=== PATIENT | male | born 2000 | race Caucasian/White ===

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

== ENCOUNTER 2021-02-05 11:37 | Emergency (ER) | payer OTHER, SELFPAY ==
--- NOTE | ~2021-02-05 | XR_ITS ---
EXAMINATION: XR chest 1V INDICATION: Sore throat and cough TECHNIQUE: PA view of the chest is obtained. COMPARISON: 03/05/2020 FINDINGS: The lungs are free of acute opacities. There is no pleural effusion or pneumothorax. The ca rdiomediastinal silhouette is normal. IMPRESSION: 1. No acute cardiopulmonary abnormality. Reviewed, dictated and finalized at location A.
[2021-02-05 11:38] VITALS: BP 123/60; PULSE 82; RESP 18; TEMP 36.1; O2SAT 99
--- NOTE | 2021-02-05 13:08 | ED.GENADULT ---
HPI - General Adult General Chief complaint: Unspecified Stated complaint: sore throat, weak, ROBERT Time Seen by Provider: 02/05/21 12:55 Source: patient History of Present Illness HPI narrative: Patient presented to the ED with Covid symptoms in the form of intermittent headache, low-grade fever, coughing, sore throat, body aches for the last 5 days. Got worse today. Patient is not vaccinated, not sure if he been exposed to anybody with Covid or not. Related Data Home Medications Medication Instructions Recorded Confirmed cetirizine mg 02/05/21 Allergies Allergy/AdvReac Type Severity Reaction Status Date / Time No Known Allergies Allergy Verified 02/05/21 11:38 Review of Systems Review of Systems: CONSTITUTIONAL: Denies fever, chills, or sweats. EYES: Denies visual changes, redness, or discharge. ENT: Denies rhinorrhea, congestion, sore throat, or otalgia. CARDIOVASCULAR: Denies chest pain, palpitations, or edema. RESPIRATORY: Denies cough or dyspnea. GASTROINTESTINAL: Denies abdominal pain, nausea, vomiting, or diarrhea. GENITOURINARY: Denies dysuria or hematuria. SKIN: Denies rash or itching. MUSCULOSKELETAL: Denies back pain, joint pain, or myalgia. NEUROLOGIC: Denies headache, numbness, or weakness. PSYCHIATRIC: Denies anxiety or depression. PMFSH Past Medical History Medical History No active medical problems Social History Social History Smoking status: Never smoker Gender identity (if verbalized by the patient): Male Exam Narrative: General appearance: Well-developed, well-nourished Skin: Normal color Head: Normocephalic, nontraumatic Eyes: Clear conjunctiva ENT: Oropharynx normal, ears normal, nose normal Neck: Supple, nontender Chest and respiratory: Airway patent, no respiratory distress, no accessory muscle use Heart: Regular rate/rhythm Abdomen: Soft, nontender, no organomegaly, quiet bowel sounds Vascular: Normal peripheral pulses, normal capillary refill. Musculoskeletal: Normal range of motion, nontender back Neurologic: Alert and oriented ?3, [employer]ATOR is normal as tested, no gross motor deficit Course Course Emergency Course: Stable Vital Signs Vital signs: Vital Signs Temperature 36.1 C L 02/05/21 11:38 Pulse Rate 82 02/05/21 11:38 Respiratory Rate 18 02/05/21 11:38 Blood Pressure 123/60 02/05/21 11:38 Pulse Oximetry 99 02/05/21 11:38 Temperature 36.1 C L 02/05/21 11:38 Pulse Rate 82 02/05/21 11:38 Respiratory Rate 18 02/05/21 11:38 Blood Pressure 123/60 02/05/21 11:38 Pulse Oximetry 99 02/05/21 11:38 Medical Decision Making MDM Narrative Medical decision making narrative: Upper respiratory viral infection is my concern. Covid test ordered. Differential Diagnosis Differential Diagnosis: Have a respiratory viral infection, Covid infection Vital Signs Vital Signs: Vital Signs Temperature 36.1 C L 02/05/21 11:38 Pulse Rate 82 02/05/21 11:38 Respiratory Rate 18 02/05/21 11:38 Blood Pressure 123/60 02/05/21 11:38 Pulse Oximetry 99 02/05/21 11:38 Temperature 36.1 C L 02/05/21 11:38 Pulse Rate 82 02/05/21 11:38 Respiratory Rate 18 02/05/21 11:38 Blood Pressure 123/60 02/05/21 11:38 Pulse Oximetry 99 02/05/21 11:38 Lab Data Labs: Strep Screen Presumptive Negative *(Reference Range: Negative)* Critical Care Time Critical Care Time Critical Care Time: No Discharge Plan Discharge Clinical Impression: Viral upper respiratory infection Patient Disposition:
[2021-02-05 13:22] VITALS: BP 120/88; PULSE 80; RESP 20; O2SAT 100
[2021-02-06 18:30] LABS: SARS-CoV-2 RNA PCR Negative
== END 2021-02-05 13:31 | disposition home or self-care (01) ==
PROVIDERS: Emergency Provider Emergency Medicine
DX: J02.9 Acute pharyngitis, unspecified (principal); R51.9 Headache, unspecified; R05 Cough; Z20.822 Contact with and (suspected) exposure to COVID-19
CPT/HCPCS: 71045; 87081; 87880; 99283; C9803; U0003; U0005

== ENCOUNTER 2021-10-23 14:32 | Outpatient (CLI) | payer OTHER, SELFPAY ==
--- NOTE | ~2021-10-23 | XR_ITS ---
EXAM: XR finger 3rd LT min 2V HISTORY: TOOTHACHE,PAIN IN LEFT/PAIN IN LEFT LONG FINGER COMPARISON: None available FINDINGS: Normal mineralization. No fracture or dislocation. No lytic or blastic lesion. Joint space s maintained. No erosion or periosteal change. 9 mm ovoid soft tissue density anterior and lateral to the third distal phalange. IMPRESSION: Possible soft tissue mass in the distal left third digit, consider MRI of the finger for further eval uation. Reviewed, dictated and finalized at location K. IMPRESSION: Possible soft tissue mass in the distal left third digit, consider MRI of the f genevieve for further evaluation.
--- NOTE | ~2021-10-23 | XR_ITS ---
EXAM: XR mandible min 4V HISTORY: TOOTHACHE,PAIN IN LEFT/PAIN IN LEFT LONG FINGER COMPARISON: None available FINDINGS: Normal mineralization. Aerated spaces are clear. Symmetric intact orbits. No melissa-apical l ucency, although not all tooth roots are adequately visualized. Bilateral impaction of the mandibular wisdom teeth. IMPRESSION: Impacted mandibular wisdom teeth. Recommend dental referral. Reviewed, dictated and finalized at location K.
== END 2021-10-23 14:33 | disposition home or self-care (01) ==
LOC: ANHIMG 14:38
PROVIDERS: PCP Physician Assistant; Visit Provider Physician Assistant
DX: K08.89 Other specified disorders of teeth and supporting structures (principal); M79.645 Pain in left finger(s)
CPT/HCPCS: 70110; 73140

== ENCOUNTER 2021-11-04 23:14 | Emergency (ER) | payer OTHER, SELFPAY ==
[2021-11-04 23:41] VITALS: BP 135/82; PULSE 106; RESP 20; O2SAT 99
--- NOTE | 2021-11-05 01:30 | ED.URI ---
HPI - URI/Sore Throat General Chief Complaint: Upper Respiratory Infection Stated Complaint: cough, sinus infection Time Seen by Provider: 11/04/21 23:49 History of Present Illness HPI Narrative: 21-year-old male with history of seasonal allergies presents here with anticoagulation for worsening congestion and cough, no fevers or chills. No nausea or vomiting other than when he vomits from coughing. Related Data Home Medications Medication Instructions Recorded Confirmed cetirizine mg 02/05/21 Allergies Allergy/AdvReac Type Severity Reaction Status Date / Time No Known Allergies Allergy Verified 02/05/21 11:38 Review of Systems Review of Systems: All systems reviewed & are unremarkable except as noted in HPI and below PMFSH Past Medical History Medical History No active medical problems Social History Social History Smoking status: Never smoker Gender identity (if verbalized by the patient): Male Exam Narrative: EXAMINATION OF ORGAN SYSTEMS/BODY AREAS: Constitutional: Vital signs per nursing GENERAL:[No acute distress, non-toxic appearing.] HEAD: Normal with no signs of head trauma. EYES: EOMI, conjunctiva normal ENT: Hearing grossly intact; no sinus tenderness, congested LUNGS: Nonlabored breathing though with some coughs with deep breathing. CTAB HEART: Minimally tachycardic ABD: [Soft], [tender to palpation] EXT: Normal range of motion SKIN: [No rashes or lesions.] NEURO: [Alert and oriented x 3. No gross focal sensory or strength deficits.] PSYCH: Normal affect Course Course Emergency Course: 21-year-old male with serious seasonal allergies presents here with cough and congestion, vital signs within acceptable limits, lungs are clear to auscultation bilaterally, I suspect possible URI including COVID, less likely bacterial pneumonia given his normal saturations and no productive cough, or worsening of his environmental allergy. Doubt PE given degree of coughing congestion. I will swab him for COVID, return precautions provided. Stable for discharge home. Vital Signs Vital signs: Vital Signs Pulse Rate 106 H 11/04/21 23:41 Respiratory Rate 20 11/04/21 23:41 Blood Pressure 135/82 11/04/21 23:41 Pulse Oximetry 99 11/04/21 23:41 Pulse Rate 106 H 11/04/21 23:41 Respiratory Rate 20 11/04/21 23:41 Blood Pressure 135/82 11/04/21 23:41 Pulse Oximetry 99 11/04/21 23:41 MDM - URI/Sore Throat Lab Data Labs: Lab Results 11/05/21 Range/Units 01:21 SARS-CoV-2 RNA (RT-PCR) Negative Discharge Plan Discharge Clinical Impression: Suspected 2019 novel coronavirus infection Upper respiratory infection Qualifiers: URI type: unspecified viral URI Qualified Code(s): J06.9 - Acute upper respiratory infection, unspecified Patient Disposition: Home, Self-Care Condition: Stable Instructions: Antibiotic Form, Cold Symptoms (ED) Prescriptions: No Action cetirizine 10 mg tablet RF: 0 ipratropium bromide 42 mcg (0.06 %) spray,non-aerosol 2 spray intranasal QID Qty: 15 RF: 0 Follow-up/Referrals: Ba,DA Borja [Primary Care Provider] -
[2021-11-05 02:03] LABS: SARS-CoV-2 RNA PCR Negative
== END 2021-11-05 01:43 | disposition home or self-care (01) ==
LOC: ANHED 11-05 01:46
PROVIDERS: Emergency Provider Emergency Medicine; PCP Physician Assistant
DX: J06.9 Acute upper respiratory infection, unspecified (principal); Z20.822 Contact with and (suspected) exposure to COVID-19
CPT/HCPCS: 99283; C9803; U0003; U0005

== ENCOUNTER 2021-11-24 15:57 | Emergency (ER) | payer OTHER, SELFPAY ==
[2021-11-24 16:05] VITALS: BP 133/72; PULSE 86; RESP 20; TEMP 37.4; O2SAT 100
--- NOTE | 2021-11-24 16:09 | ED.URI ---
HPI - URI/Sore Throat General Chief Complaint: Upper Respiratory Infection Stated Complaint: Allergies Time Seen by Provider: 11/24/21 16:09 Source: patient and RN notes reviewed Mode of arrival: ambulatory Limitations: no limitations History of Present Illness HPI Narrative: 21-year-old male presents to the [facility] with complaints of allergies. Was prescribed allergy medication by his primary but still having symptoms. Had not followed up again with his primary. Denies fevers, chest pain. States he has been coughing and trying to use his inhaler with no relief. Related Data Home Medications Medication Instructions Recorded Confirmed cetirizine 10 mg tablet 10 mg PO DAILY 02/05/21 11/24/21 albuterol sulfate 90 mcg/actuation 2 inh inhalation DIRECTED 11/24/21 11/24/21 aerosol inhaler Allergies Allergy/AdvReac Type Severity Reaction Status Date / Time No Known Allergies Allergy Verified 11/24/21 16:19 Review of Systems Review of Systems: All systems reviewed & are unremarkable except as noted in HPI and below Constitutional: Constitutional: Reports no additional constitutional complaints, Denies chills and Denies fever(s) Eyes: Eyes: Reports no additional eye complaints ENT: Reports as per HPI and Reports nasal congestion Cardiovascular: Cardiovascular: Reports no additional cardiovascular complaints Respiratory: Respiratory: Reports as per HPI, Reports chest congestion, Reports cough, Denies dyspnea and Denies wheezing Gastrointestinal: Gastrointestinal: Reports no additional gastrointestinal complaints Musculoskeletal: Musculoskeletal: Reports no additional musculoskeletal complaints Integumentary/Breasts: Skin/Breast: Reports system reviewed and no additional complaints, except as docu Neurologic: Reports system reviewed and no additional complaints, except as documented Psychiatric: Psychiatric: Reports no additional psychiatric complaints Allergic/Immunologic: Allergic/Immunologic: Reports no additional allergic/immunologic complaints [facility] Past Medical History Medical History No active medical problems Surgical History Surgical History (Updated 11/24/21 @ 19:46 by Seda Cee APRN) No history of previous surgery Social History Social History Smoking status: Never smoker Gender identity (if verbalized by the patient): Male Comments At the time of my signature, I reviewed and agree with the nursing past medical, surgical, social, and family history. There is no relevant family history pertinent to the patient complaint. Exam Const: General: no acute distress, alert and ill appearing acutely (mild) Nutritional Appearance: well nourished and obese Orientation/consciousness: patient oriented x3 Limitations: no limitations HENMT: Head: normal to inspection Ears: external ears normal General nose exam: Normal external nose present Mouth: Yes Normal oral and palatal mucosa present Eyes: General: appearance normal, both eyes and all related structures Pupils: Equal, round and reactive pupils present Neck: Neck: normal visual inspection, no lymphadenopathy and no meningeal signs Chest: Chest palpation & inspection: normal inspection of the chest Resp: Effort & Inspection: normal respiratory effort and no use of accessory muscles Auscultation: clear to auscultation bilaterally, no crackles, no rales, no rhonchi and no wheezes Cardio: Rate: regular rate Rhythm: regular rhythm Back/Spine/Pelvis: Cervical Spine: normal cervical lordosis Thoracic/Lumbar Spine: thoracic and lumbar spine normal to inspection Skin: General skin exam: normal color Rashes: no rashes Wounds: no wounds Neuro: General: patient oriented x3, moves all extremities, no meningeal signs and no focal motor deficits Cranial nerves: Yes Equal, round and reactive pupils present Speech: norm
== END 2021-11-24 16:25 | disposition home or self-care (01) ==
PROVIDERS: Emergency Provider Nurse Practitioner
DX: J40 Bronchitis, not specified as acute or chronic (principal)
CPT/HCPCS: 99213; G0463

== ENCOUNTER 2024-01-29 06:33 | Emergency (ER) | payer OTHER, SELFPAY ==
[2024-01-29 06:39] VITALS: BP 149/86; PULSE 109; RESP 18; TEMP 37.3; O2SAT 98
[2024-01-29 07:00] VITALS: BP 141/96; PULSE 111; RESP 18; O2SAT 98
[2024-01-29 07:30] VITALS: BP 147/91; PULSE 105; RESP 18; TEMP 37.2; O2SAT 98
--- NOTE | 2024-01-29 07:35 | ED.DENTAL ---
HPI - Dental/Oral General Chief complaint: Dental/Oral Stated complaint: dental pain Time Seen by Provider: 01/29/24 06:55 History of Present Illness HPI Narrative: 23-year-old male presents to the emergency department for evaluation for dental pain. Patient did see a dentist yesterday and was started on Augmentin. Patient took his 1st dose at 6:00 p.m. yesterday. Patient did notice worsening swelling today. Related Data Home Medications Medication Instructions Recorded Confirmed cetirizine 10 mg tablet 10 mg PO DAILY 02/05/21 11/24/21 albuterol sulfate 90 mcg/actuation 2 inh inhalation DIRECTED 11/24/21 11/24/21 aerosol inhaler amoxicillin 500 mg capsule mg 01/29/24 ibuprofen 800 mg tablet mg 01/29/24 Allergies Allergy/AdvReac Type Severity Reaction Status Date / Time No Known Allergies Allergy Verified 01/29/24 06:43 Review of Systems Review of Systems: All systems reviewed & are unremarkable except as noted in HPI and below PMFSH Past Medical History Medical History (Updated 01/29/24 @ 08:09 by Jermaine Martinez MD) No active medical problems Surgical History Surgical History (Updated 11/24/21 @ 19:46 by Seda Cee APRN) No history of previous surgery Social History Social History Smoking status: Never smoker Gender identity (if verbalized by the patient): Male Exam Narrative: APPEARANCE: Well appearing, no pain, no distress, well-nourished. HEAD: Left-sided facial swelling EYES: PERRLA/EOMI, conjunctivae clear. NOSE: Normal no drainage EARS:TMS clear with good light reflex. THROAT: Pharynx clear, no exudate. NECK: Supple. No adenopathy, no masses. RESPIRATORY: Airway patent, respirations nonlabored. Clear to auscultation bilaterally, no rales, rhonchi, wheezing. CARDIOVASCULAR: Regular rate and rhythm without murmurs rubs or gallops. ABDOMINAL: Soft, nontender, nondistended, normal bowel sounds MUSCULOSKELETAL: Moves all extremities. Strength/ROM intact, No edema, No calf tenderness. NEURO: Alert. Cranial nerves II through XII intact. Grossly intact SKIN: Warm, dry. Normal Color Course Course Emergency Course: Patient was treated with IV clinda and discharged home to take his Augmentin. Vital Signs Vital signs: Vital Signs Temperature 99.2 F 01/29/24 06:39 Pulse Rate 109 H 01/29/24 06:39 Respiratory Rate 18 01/29/24 06:39 Blood Pressure 149/86 H 01/29/24 06:39 Pulse Oximetry 98 01/29/24 06:39 Oxygen Delivery Room Air 01/29/24 06:39 Temperature 98.9 F 01/29/24 08:40 Pulse Rate 98 01/29/24 08:40 Respiratory Rate 16 01/29/24 08:40 Blood Pressure 146/95 H 01/29/24 08:40 Pulse Oximetry 99 01/29/24 08:40 Oxygen Delivery Room Air 01/29/24 06:39 MDM - Dental/Oral MDM Narrative Medical decision making narrative: 23-year-old male presenting ED for evaluation for left-sided facial swelling. I suspect that the patient's Augmentin has not had time to work. While patient is the emergency department he is being treated with an IV dose of clindamycin. Differential Diagnosis Differential diagnosis: Likely gingival abscess, dental caries, toothache, dental abscess, fracture of tooth and aphthous ulcer Discharge Plan Discharge Clinical Impression: Dental caries, Toothache Patient Disposition: Home, Self-Care Condition: Stable Instructions: Antibiotic Form, Toothache (ED) Additional Instructions: Continue your Augmentin as directed. Have close follow-up with your dentist as scheduled. Continue Tylenol and ibuprofen for pain control. Prescriptions: No Action albuterol sulfate 90 mcg/actuation HFA aerosol inhaler 2 inh INHALATION DIRECTED prednisone 20 mg tablet 20 mg PO DAILY Qty: 5 0RF (DME) Space Chamber Spacer See Rx Instructions .ROUTE .MEDSUPPLY Qty: 1 0RF Rx Instructions: As directed albuterol sulfate 90 mcg/actuation
[2024-01-29] MEDS: CLINDAMYCIN 600 MG/D5W 50 ML 600 MG/50 ML PIGGYBACK 100 MG IVPB (08:00)
[2024-01-29 08:40] VITALS: BP 146/95; PULSE 98; RESP 16; TEMP 37.2; O2SAT 99
== END 2024-01-29 08:40 | disposition home or self-care (01) ==
PROVIDERS: Emergency Provider Emergency Medicine
DX: K02.9 Dental caries, unspecified (principal)
CPT/HCPCS: 96365; 99284